=== PATIENT | female | born 1945 | race Caucasian/White ===

== ENCOUNTER 2023-01-29 18:54 | Emergency (ER) | payer MEDICARE ==
[~2023-01-29] VITALS: Ht 170.2 cm; Wt 54.0 kg
[2023-01-29 19:11] VITALS: BP 115/70
[2023-01-29] MEDS ORDERED: naproxen 500mg tablet PO ONE (21:20)
== END 2023-01-30 07:03 | disposition home or self-care (01) ==
LOC: ER 18:56
DX: M79.642 Pain in left hand (principal); M19.90 Unspecified osteoarthritis, unspecified site; W19.XXXA Unspecified fall, initial encounter; Y93.89 Activity, other specified; Y92.89 Other specified places as the place of occurrence of the external cause; Y99.8 Other external cause status
CPT/HCPCS: 29125; 73110; 73130; 99284